=== PATIENT | male | born 1960 | race Two or more races ===

== ENCOUNTER 2019-11-19 22:08 | Inpatient (IN) | payer SELFPAY ==
[~2019-11-19] VITALS: Ht 172.7 cm; Wt 72.1 kg
[2019-11-19] MEDS ORDERED: ACETAMINOPHEN 500MG TABLET PO ONE (23:00)
[2019-11-19 23:21] LABS: BASOPHILS % 0.3 % (0.0-2.0); HEMATOCRIT. 33.1 % (42.0-52.0); HEMOGLOBIN. 11.2 g/dL (14.0-18.0); LYMPHOCYTES % 7.8 % (20.0-50.0); MEAN CORPUSCULAR VOLUME 74.2 fL (80.0-94.0); MEAN PLATELET VOLUME 8.2 fl (7.4-10.4); MONOCYTES % 12.5 % (2.0-8.0); NEUTROPHILS % 79.4 % (40.0-76.0); PLATELET 265 x1000/uL (130-400); RED BLOOD CELL COUNT 4.47 mill/uL (4.7-6.1); RED CELL DISTRIBUTION WIDTH 16.7 % (11.6-14.6)
[2019-11-19 23:27] LABS: CHLORIDE 95 mEq/L (98-107)
[2019-11-20 08:20] VITALS: BP 126/67
[2019-11-20 10:00] VITALS: BP 126/67
[2019-11-20] MEDS ORDERED: POTASSIUM CHLORIDE 20MEQ TABLET SR PO NR (11:30)
[2019-11-20] MEDS ORDERED: ONDANSETRON HCL 4MG/2ML INJ IV PRN (11:30)
[2019-11-20] MEDS ORDERED: ACETAMINOPHEN 325MG TABLET PO PRN (11:30)
[2019-11-20 12:00] VITALS: BP 137/75
[2019-11-20] MEDS ORDERED: PIPERACILLIN/TAZOBACTAM 3.375 G in DEXTROSE 5% WATER 50 ML IV SCH (12:30)
[2019-11-20] MEDS ORDERED: VANCOMYCIN IV SCH (13:00)
[2019-11-20] MEDS ORDERED: WATER IV SCH (13:00)
[2019-11-20] MEDS ORDERED: DEXTROSE 5% IV SCH (13:00)
[2019-11-20] MEDS: SODIUM CHLORIDE 0.9% 1,000 ML IV SCH (14:05)
[2019-11-20] MEDS ORDERED: AZITHROMYCIN 500 MG TABLET PO NR (16:00)
[2019-11-20] MEDS ORDERED: ASCORBIC ACID 500 MG TABLET PO SCH (16:00)
[2019-11-20 16:09] VITALS: BP 111/68
[2019-11-20 16:48] LABS: CLARITY URINE CLEAR (CLEAR); COLOR URINE YELLOW (YELLOW); KETONES URINE 2+ (NEGATIVE); LEUKOCYTE ESTERASE URINE NEGATIVE (NEGATIVE); NITRITE URINE NEGATIVE (NEGATIVE); OCCULT BLOOD URINE NEGATIVE (NEGATIVE); PH URINE >=9.0 (4.5-8.0); PROTEIN URINE 2+ (NEGATIVE); SPECIFIC GRAVITY URINE 1.022 (1.005-1.030)
[2019-11-20] MEDS: HYDROXYCHLOROQUINE SULFATE 200MG TABLET PO SCH (16:58)
[2019-11-20] MEDS: ZINC SULFATE 220 MG ( 50 ) CAPSULE PO SCH (16:58)
[2019-11-20 17:06] LABS: *AMPHETAMINES SCREEN URINE NEGATIVE (NEGATIVE)
[2019-11-20 17:07] LABS: *BARBITURATES SCREEN URINE NEGATIVE (NEGATIVE); *BENZODIAZEPINES SCREEN URINE NEGATIVE (NEGATIVE); *COCAINE SCREEN URINE NEGATIVE (NEGATIVE); METHADONE URINE SCREEN NEGATIVE (NEGATIVE); OPIATES URINE SCREEN NEGATIVE (NEGATIVE); PHENCYCLIDINE URINE SCREEN NEGATIVE (NEGATIVE)
[2019-11-20 17:08] LABS: CANNABINOID URINE SCREEN NEGATIVE (NEGATIVE)
[2019-11-20 20:00] VITALS: BP 106/58
[2019-11-20] MEDS: GUAIFENESIN 600MG ER TABLET PO SCH (21:16)
[2019-11-20] MEDS: HEPARIN 5000 UNITS/ML VIAL SUBCUT SCH (21:17)
[2019-11-21] VITALS: BP 108/62
[2019-11-21 04:00] VITALS: BP 113/69
[2019-11-21 06:08] LABS: CHLORIDE 102 mEq/L (98-107)
[2019-11-21] MEDS: SODIUM CHLORIDE 0.9% 1,000 ML IV SCH ×2 (06:31→14:42)
[2019-11-21 07:55] LABS: BASOPHILS % 0.9 % (0.0-2.0); EOSINOPHILS % 0.7 % (0.0-5.0); HEMATOCRIT. 34.4 % (42.0-52.0); LYMPHOCYTES % 12.3 % (20.0-50.0); MEAN CORPUSCULAR HEMOGLOBIN 23.8 pg (28.0-32.0); MEAN CORPUSCULAR VOLUME 74.3 fL (80.0-94.0); MONOCYTES % 11.6 % (2.0-8.0); NEUTROPHILS % 74.5 % (40.0-76.0); PLATELET 300 x1000/uL (130-400); RED BLOOD CELL COUNT 4.64 mill/uL (4.7-6.1); RED CELL DISTRIBUTION WIDTH 17.3 % (11.6-14.6)
[2019-11-21] MEDS: HYDROXYCHLOROQUINE SULFATE 200MG TABLET PO SCH ×2 (11:46→18:49)
[2019-11-21] MEDS: ZINC SULFATE 220 MG ( 50 ) CAPSULE PO SCH (11:46)
[2019-11-21] MEDS: AZITHROMYCIN 250 MG TABLET PO SCH (11:47)
[2019-11-21] MEDS: GUAIFENESIN 600MG ER TABLET PO SCH ×2 (11:47→20:38)
[2019-11-21] MEDS: HEPARIN 5000 UNITS/ML VIAL SUBCUT SCH ×2 (11:48→20:38)
[2019-11-21] MEDS: ASCORBIC ACID 500 MG TABLET PO SCH ×3 (11:53→18:48)
[2019-11-21 12:00] VITALS: BP 121/75
[2019-11-21] MEDS: THIAMINE HCL 200 MG in SODIUM CHLORIDE 0.9% 98 ML IV SCH ×2 (14:41→18:49)
[2019-11-21 16:00] VITALS: BP 117/75
[2019-11-21 20:00] VITALS: BP 103/58
[2019-11-22] VITALS: BP 113/69
[2019-11-22] MEDS: SODIUM CHLORIDE 0.9% 1,000 ML IV SCH ×2 (00:43→12:43)
[2019-11-22] MEDS: ASCORBIC ACID 500 MG TABLET PO SCH ×5 (01:18→18:59)
[2019-11-22 04:00] VITALS: BP 107/62
[2019-11-22 08:00] VITALS: BP 114/71
[2019-11-22] MEDS: HYDROXYCHLOROQUINE SULFATE 200MG TABLET PO SCH ×2 (09:25→18:08)
[2019-11-22] MEDS: GUAIFENESIN 600MG ER TABLET PO SCH ×2 (09:25→20:24)
[2019-11-22] MEDS: ZINC SULFATE 220 MG ( 50 ) CAPSULE PO SCH (09:25)
[2019-11-22] MEDS: THIAMINE HCL 200 MG in SODIUM CHLORIDE 0.9% 98 ML IV SCH (09:25)
[2019-11-22] MEDS: AZITHROMYCIN 250 MG TABLET PO SCH (09:25)
[2019-11-22] MEDS: HEPARIN 5000 UNITS/ML VIAL SUBCUT SCH ×2 (09:26→20:25)
[2019-11-22 09:44] LABS: BASOPHILS % 0.4 % (0.0-2.0); EOSINOPHILS % 0.8 % (0.0-5.0); HEMATOCRIT. 32.2 % (42.0-52.0); HEMOGLOBIN. 10.8 g/dL (14.0-18.0); LYMPHOCYTES % 8.2 % (20.0-50.0); MEAN CORPUSCULAR HEMOGLOBIN 27.8 pg (28.0-32.0); MEAN CORPUSCULAR VOLUME 82.9 fL (80.0-94.0); MEAN PLATELET VOLUME 8.9 fl (7.4-10.4); MONOCYTES % 10.4 % (2.0-8.0); NEUTROPHILS % 80.2 % (40.0-76.0); PLATELET 380 x1000/uL (130-400); RED BLOOD CELL COUNT 3.88 mill/uL (4.7-6.1); RED CELL DISTRIBUTION WIDTH 17.6 % (11.6-14.6)
[2019-11-22 09:55] LABS: CHLORIDE 106 mEq/L (98-107)
[2019-11-22 12:00] VITALS: BP 110/69
[2019-11-22] MEDS ORDERED: ALBUTEROL 6.7GM HFA INHALER ORI PRN (15:30)
[2019-11-22 16:00] VITALS: BP 141/84
[2019-11-22] MEDS: THIAMINE HCL 100MG TABLET PO SCH (18:08)
[2019-11-22 20:00] VITALS: BP 110/74
[2019-11-22] MEDS ORDERED: GUAIFENESIN 600MG ER TABLET PO SCH (21:00)
[2019-11-23] VITALS (7 sets, daily range): BP systolic 119–141; BP diastolic 72–78
[2019-11-23] MEDS: SODIUM CHLORIDE 0.9% 1,000 ML IV SCH (02:14)
[2019-11-23] MEDS: ASCORBIC ACID 500 MG TABLET PO SCH ×5 (05:00→23:34)
[2019-11-23 06:56] LABS: HEMATOCRIT. 31.3 % (42.0-52.0); HEMOGLOBIN. 10.8 g/dL (14.0-18.0); MEAN CORPUSCULAR HEMOGLOBIN 30.4 pg (28.0-32.0); MEAN CORPUSCULAR VOLUME 87.9 fL (80.0-94.0); MEAN PLATELET VOLUME 8.4 fl (7.4-10.4); PLATELET 436 x1000/uL (130-400); RED BLOOD CELL COUNT 3.56 mill/uL (4.7-6.1); RED CELL DISTRIBUTION WIDTH 17.6 % (11.6-14.6)
[2019-11-23 06:58] LABS: CHLORIDE 108 mEq/L (98-107)
[2019-11-23] MEDS: HYDROXYCHLOROQUINE SULFATE 200MG TABLET PO SCH ×2 (08:31→17:21)
[2019-11-23] MEDS: ZINC SULFATE 220 MG ( 50 ) CAPSULE PO SCH (08:31)
[2019-11-23] MEDS: HEPARIN 5000 UNITS/ML VIAL SUBCUT SCH ×2 (08:31→21:08)
[2019-11-23] MEDS: AZITHROMYCIN 250 MG TABLET PO SCH (08:31)
[2019-11-23] MEDS: THIAMINE HCL 100MG TABLET PO SCH ×2 (08:32→17:21)
[2019-11-23] MEDS: GUAIFENESIN 600MG ER TABLET PO SCH ×2 (08:32→21:08)
[2019-11-23] MEDS ORDERED: FUROSEMIDE 40MG/4ML VIAL IVP SCH (09:45)
[2019-11-23] MEDS ORDERED: ALBU6.7H9 ORI (10:32)
[2019-11-23] MEDS ORDERED: AZIT250T12 PO (10:32)
[2019-11-23] MEDS ORDERED: GUAI600T44 PO (10:32)
[2019-11-23] MEDS ORDERED: ZINC220C2 PO (10:32)
[2019-11-23] MEDS ORDERED: THIA100T72 PO (10:32)
[2019-11-23] MEDS ORDERED: ASCO500T20 PO (10:32)
[2019-11-23] MEDS ORDERED: TOPUD PO (10:32)
[2019-11-23] MEDS ORDERED: HYDR200T35 PO (10:32)
[2019-11-23 14:10] LABS: PLATELET ESTIMATE INCREASED
[2019-11-24] VITALS: BP 108/65
[2019-11-24 04:00] VITALS: BP 121/77
[2019-11-24] MEDS: ASCORBIC ACID 500 MG TABLET PO SCH ×2 (06:47→12:28)
[2019-11-24 08:56] VITALS: BP 125/72
[2019-11-24] MEDS: GUAIFENESIN 600MG ER TABLET PO SCH (09:06)
[2019-11-24] MEDS: AZITHROMYCIN 250 MG TABLET PO SCH (09:07)
[2019-11-24] MEDS: ZINC SULFATE 220 MG ( 50 ) CAPSULE PO SCH (09:07)
[2019-11-24] MEDS: HEPARIN 5000 UNITS/ML VIAL SUBCUT SCH (09:07)
[2019-11-24] MEDS: HYDROXYCHLOROQUINE SULFATE 200MG TABLET PO SCH (09:07)
[2019-11-24 12:06] VITALS: BP 121/71
[2019-11-24] MEDS: THIAMINE HCL 100MG TABLET PO SCH (12:28)
== END 2019-11-24 13:00 | disposition home or self-care (01) | DRG 720 ==
LOC: ER 22:08 → 7EST 11-20 01:15 → ENRESERV 11-20 07:40
PROVIDERS: ADMIT Internal Medicine; ATTEND Internal Medicine
DX: A41.9 Sepsis, unspecified organism (principal); U07.1 COVID-19; J96.01 Acute respiratory failure with hypoxia; E87.1 Hypo-osmolality and hyponatremia; D64.9 Anemia, unspecified; J12.89 Other viral pneumonia; Z87.01 Personal history of pneumonia (recurrent); R74.0 Nonspecific elevation of levels of transaminase and lactic acid dehydrogenase [LDH]; E87.6 Hypokalemia; I10 Essential (primary) hypertension; E87.8 Other disorders of electrolyte and fluid balance, not elsewhere classified; Z82.49 Family history of ischemic heart disease and other diseases of the circulatory system
CPT/HCPCS: 36415; 71045; 80053; 80305; 81003; 82728; 83605; 83615; 83735; 83880; 84145; 84443; 85025; 85651; 86140; 87420; 87635; 87804; 96365; 99285; J1644; J1940; J2543; J3370; J3411; J7030; J7050; J7060; U0002